=== PATIENT | female | born 1935 | race Caucasian/White ===

== ENCOUNTER 2021-03-27 08:17 | Emergency (ER) | payer MEDICARE, OTHER ==
[~2021-03-27 08:17] MED LIST: ACID REDUCER150 MG PO; COREG 3.125M3.125 MG PO; COREG12.5 MG PO; COUMADIN 5MG TAB5 MG PO; COUMADIN2 MG PO; COZAAR100 MG PO; COZAAR50 MG PO; IRON TABS PO; LASIX20 MG PO; LOTRISONE15 GM TOP; MIRALAX17 GM PO; NEURONTIN100 MG PO; NORVASC2.5 MG PO; PREVACID30 M1 PO; PREVACID30 MG PO; REQUIP XL2 MG PO; RESTASIS1 EACH EYEBOTH; RESTASIS1 EACH OU; SANTYL15 GM TOP; SLOW RELEASE47.5 MG PO; TRAMADOL HCL50 MG PO; ZINC50 M1 PO; ZYRTEC10 M3 PO; ZYRTEC10 MG PO
[2021-03-27 08:50] LABS: BASOPHIL 1.2 % (0-2); EOSINOPHIL 3.3 % (0-7); HGB 10.7 g/dl (12.5-16.0); LYMPHOCYTE 24.3 % (15-48); MCH 28.8 pg (25.0-31.0); MCHC 32.4 g/dL (32.0-36.0); MCV 88.7 fL (78.0-100.0); MONOCYTE 12.7 % (0-12); MPV 10.6 fL (6.0-9.5); NEUTROPHIL 58.3 % (41-80); NRBC 0; PLT 214 K/uL (150-400); RBC 3.72 M/uL (4.20-5.40); RDW 18.6 % (11.5-14.0); WBC 5.2 K/uL (4.0-10.5)
[2021-03-27 09:15] LABS: INR 1.1 (0.9-1.2); PROTHROMBIN TIME 13.6 SECONDS (11.8-13.4); PTT 31.3 SECONDS (24.4-34.7)
[2021-03-27 09:17] LABS: ALBUMIN 2.9 g/dL (3.4-5.0); BILIRUBIN - TOTAL 0.6 mg/dL (0.2-1.0); BUN/CREAT RATIO (CALC) 28.8 RATIO; CREATININE 1.25 mg/dL (0.51-0.95); GLOBULIN (CALCULATION) 3.4 g/dL; POTASSIUM 4.1 mmol/L (3.5-5.1); TOTAL PROTEIN 6.3 g/dL (6.4-8.2)
[2021-03-27 12:28] LABS: BILIRUBIN NEGATIVE (NEGATIVE); BLOOD TRACE-INTACT Ery/uL (NEGATIVE); CLARITY CLEAR (CLEAR); COLOR YELLOW (YELLOW); GLUCOSE (U) NORMAL (NORMAL); LEUKOCYTES 3+ Leu/uL (NEGATIVE); NITRITE POSITIVE (NEGATIVE); PROTEIN NEGATIVE (NEGATIVE)
[2021-03-27 13:03] LABS: BACTERIA 4+
[2021-03-27 13:04] LABS: URINARY RBC RARE; URINARY WBC 20-50
[2021-03-27] MEDS ORDERED: MACROBID100 MG PO (13:44)
== END 2021-03-27 14:10 | disposition home or self-care (01) ==
LOC: FER 08:17
PROVIDERS: Emergency Medicine
DX: N39.0 Urinary tract infection, site not specified (principal); R41.82 Altered mental status, unspecified; I10 Essential (primary) hypertension
CPT/HCPCS: 36415; 70450; 70544; 70548; 70551; 71045; 80053; 81001; 83735; 84484; 85025; 85610; 85730; 87076; 87088; 87186; 93005; A9579

== ENCOUNTER 2021-05-02 16:35 | Emergency (ER) | payer MEDICARE, OTHER ==
[~2021-05-02 16:35] MED LIST changes: +MACROBID100 MG PO
[2021-05-02 19:38] LABS: BASOPHIL 0.6 % (0-2); EOSINOPHIL 1.3 % (0-7); HCT 32.6 % (37.0-47.0); HGB 10.5 g/dl (12.5-16.0); LYMPHOCYTE 16.8 % (15-48); MCH 28.6 pg (25.0-31.0); MCHC 32.2 g/dL (32.0-36.0); MCV 88.8 fL (78.0-100.0); MONOCYTE 12.3 % (0-12); MPV 10.4 fL (6.0-9.5); NEUTROPHIL 68.8 % (41-80); NRBC 0; PLT 198 K/uL (150-400); RBC 3.67 M/uL (4.20-5.40); RDW 16.2 % (11.5-14.0); WBC 5.3 K/uL (4.0-10.5)
[2021-05-02 19:50] LABS: ALBUMIN 3.1 g/dL (3.4-5.0); BILIRUBIN - TOTAL 0.3 mg/dL (0.2-1.0); BUN/CREAT RATIO (CALC) 29.1 RATIO; CREATININE 1.17 mg/dL (0.51-0.95); GLOBULIN (CALCULATION) 3.2 g/dL; POTASSIUM 4.7 mmol/L (3.5-5.1); TOTAL PROTEIN 6.3 g/dL (6.4-8.2)
== END 2021-05-03 00:19 | disposition home or self-care (01) ==
LOC: FER 16:35
PROVIDERS: Internal Medicine
DX: U07.1 COVID-19 (principal); N17.9 Acute kidney failure, unspecified; D64.9 Anemia, unspecified; I25.10 Atherosclerotic heart disease of native coronary artery without angina pectoris; I10 Essential (primary) hypertension; Z88.0 Allergy status to penicillin; Z88.2 Allergy status to sulfonamides; Z88.6 Allergy status to analgesic agent; Z88.1 Allergy status to other antibiotic agents; Z88.8 Allergy status to other drugs, medicaments and biological substances; Z23 Encounter for immunization
CPT/HCPCS: 36415; 71045; 80053; 84145; 85025; J7040; M0243; Q0244

== ENCOUNTER 2021-11-21 05:35 | Emergency (ER) | payer MEDICARE, OTHER | END 2021-11-21 06:50 | disposition home or self-care (01) | LOC: FER 05:35 | DX: S00.03XA Contusion of scalp, initial encounter (principal); I10 Essential (primary) hypertension; I48.91 Unspecified atrial fibrillation; Z88.2 Allergy status to sulfonamides; Z88.0 Allergy status to penicillin; Z88.1 Allergy status to other antibiotic agents; Z88.6 Allergy status to analgesic agent; Z88.8 Allergy status to other drugs, medicaments and biological substances; W01.0XXA Fall on same level from slipping, tripping and stumbling without subsequent striking against object, initial encounter; Y92.129 Unspecified place in nursing home as the place of occurrence of the external cause | CPT/HCPCS: 70450 ==